=== PATIENT | male | born 2000 | race Caucasian/White ===

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

== ENCOUNTER 2021-11-18 16:35 | Outpatient (REF) | payer OTHER, SELFPAY ==
[2021-11-19 11:35] LABS: COVID-19 RT-PCR UVMMC Result Presumptive Positive (Negative)
== END 2021-11-18 16:36 | disposition home or self-care (01) ==
LOC: LBN 16:35
PROVIDERS: PCP Family Medicine; Visit Provider Nurse Practitioner Family
DX: Z20.822 Contact with and (suspected) exposure to COVID-19 (principal)
CPT/HCPCS: U0003